=== PATIENT | female | born 1965 | race Caucasian/White ===

== ENCOUNTER 2017-01-11 12:46 | Day surgery (SDC) | payer OTHER ==
[~2017-01-11] VITALS: Ht 160 cm; Wt 69.3 kg
[2017-01-11 14:02] VITALS: Ht 160 cm; Wt 69.3 kg
[2017-01-11 15:07] VITALS: BP 124/66; PULSE 75; RESP 20
[2017-01-11] MEDS ORDERED: FENTAnyl 50 MCG/ML VIAL ONE (15:44)
[2017-01-11] MEDS ORDERED: MIDAZOLAM 1 MG/ML 2 ML INJ ONE ×3 (15:44)
[2017-01-11 16:10] VITALS: BP 106/58; PULSE 70; RESP 14
--- NOTE | 2017-01-11 20:59 | GILP ---
DATE OF PROCEDURE: NAME OF PROCEDURE: Colonoscopy to cecum. SURGEON: Eliseo Perez MD HISTORY AND INDICATIONS: The patient is being evaluated for colorectal cancer screening. PREMEDICATION: Monitored anesthesia care by anesthesiologist. INSTRUMENT USED: Olympus colonoscope. PREPARATION: Adequate. TECHNIQUE: After informed consent, with the patient/relatives understanding the procedure, its ember cations potential risks and complications, including but not limited to allergic reaction, bleeding, perforation, infection, missed lesions and after all pertinent questions were answered to the patie nt's satisfaction, the patient/relatives signed the witnessed informed consent. Following this, premedication was administered slowly IV push by under careful cardiovascular and re spiratory monitoring with pulse oximetry, automatic blood pressure and quality assurance monitor. Once the sedativ e effect was achieved, the patient was placed in the left lateral decubitus position, digital rectal examination was performed. The colonoscope was then introduced and advanced under visual control th roughout all segments of the colon including: the rectum, sigmoid, descending colon, splenic flexure , transverse colon, hepatic flexure, ascending colon and finally reaching the cecum which was clearl y identified by transillumination, finger indentation and the ileocecal valve. Careful examination o f the mucosa of the lower gastrointestinal tract both on insertion as well as withdrawal of the inst rument disclosed the following findings: Rectal Examination: No evidence of perirectal disease, no masses. Colonic Mucosa: Entirely unremarkable throughout. The ileocecal valve was clearly identified and a ppears unremarkable. The instrument was withdrawn, re-examining the mucosa in detail. No additiona l abnormalities are noted with exception of moderate-sized internal hemorrhoids. The instrument was then withdrawn. The patient tolerated the procedure well and was transferred out of the endoscopy suite awake and in good condition to continue recovery under observation. IMPRESSION: 1. Normal colonic mucosa to cecum. 2. Moderate-sized internal hemorrhoids. PLAN: The patient will be followed up as an outpatient. Annual Hemoccult stool testing is recommen ded, and screening colonoscopy in 10 years is recommended unless clinically indicated otherwise. Dictated By: ELISEO PEREZ MS/CRAIG Conf#: [id number] DID#: [id number]
== END 2017-01-11 17:28 | disposition home or self-care (01) ==
LOC: GIL 12:46
PROVIDERS: ATTEND Internal Medicine Gastroenterology
DX: Z12.11 Encounter for screening for malignant neoplasm of colon (principal); K64.8 Other hemorrhoids
CPT/HCPCS: 45378; J2250; J3010; Z7610

== ENCOUNTER 2018-05-22 12:32 | Emergency (ER) | END 2018-05-22 15:48 | disposition left against medical advice (07) ==